=== PATIENT | male | born 1950 | race African-American/Black ===

== ENCOUNTER 2017-01-08 20:05 | Emergency (ER) | payer OTHER, BC ==
[~2017-01-08] VITALS: Ht 185.4 cm; Wt 121.1 kg
--- NOTE | ~2017-01-08 | EKG ---
[place] [address] [facility] [place] [address] ELECTROCARDIOGRAM REPORT Name: MATILDE JEFFREYJENAE Gómez Room #: DEP [facility] [id number] Admission: 01/08/17 Attend Phys: Discharge: 01/08/17 Date of : 52 Report #: [id number] THIS REPORT FOR: //name// [facility] ED Test Date: 2017-01-08 Test Time: 20:18:18 Pat Name: DELORIS JEFFREY Department: Room: Gender: Crop Quantitative Geneticist: [id number] : 1950 Requested By: Johann Cuevas Order Number: [id number] MD: Anshul Peña Measurements Intervals Karnack Rate: 72 P: 48 MT: 203 QRS: -56 QRSD: 151 T: 2 QT: 469 QTc: 514 Interpretive Statements Sinus rhythm Probable left atrial enlargement RBBB and LAFB Compared to ECG 01/09/2016 17:45:24 No significant changes Electronically Signed On 01-09-2017 14:16:54 CDT by Anshul Peña [email or web address] <ELECTRONICALLY SIGNED> By: Anshul Peña MD 01/09/17 1416 17 17 Anshul Peña MD /KEHINDE
[~2017-01-08 20:05] MED LIST: ADULT LOW DOSE81 MG PO; AMARYL4 MG PO; BENAZEPRIL HCL40 MG PO; CARVEDILOL12.5 MG PO; DICLOFENAC SODI75 M1 PO; FELODIPINE ER10 MG PO; GLUCOPHAGE500 MG PO; HYDROCHLOROTHIA25 M1 PO; HYDROCODONE-AP1 EAC6 PO; LYRICA 75 MG CA75 MG PO; MOBIC15 MG PO; OMEPRAZOLE20 M1 PO; PERCOCET 10-321 EACH PO; PERCOCET 5-3251 EACH PO; ROLAIDS CHEWAB1 EACH PO; TRAMADOL 50 MG50 MG PO; TUMS CHEWA500 MG/11 PO; VOLTAREN PO; WELCHOL 625 MG625 MG PO; ZOFRAN4 MG PO
== END 2017-01-08 20:37 | disposition left against medical advice (07) ==
LOC: ER 20:05
DX: R55 Syncope and collapse (principal); I10 Essential (primary) hypertension; E11.9 Type 2 diabetes mellitus without complications; K21.9 Gastro-esophageal reflux disease without esophagitis; M19.90 Unspecified osteoarthritis, unspecified site; F10.99 Alcohol use, unspecified with unspecified alcohol-induced disorder; Z96.652 Presence of left artificial knee joint; Z90.49 Acquired absence of other specified parts of digestive tract; Z87.891 Personal history of nicotine dependence; Z88.0 Allergy status to penicillin

== ENCOUNTER 2020-07-08 03:05 | Inpatient (IN) | payer OTHER, BC ==
[~2020-07-08] VITALS: Ht 185.4 cm; Wt 124.6 kg
[2020-07-08] VITALS (86 sets, daily range): BP systolic 96–150; BP diastolic 45–107
[~2020-07-08 03:05] MED LIST changes: +NORVASC5 MG PO
[2020-07-08 03:38] LABS: ABSOLUTE NEUTROPHILS 6.5 thou/uL (1.4-8.2); BASOPHILS 0.5 % (0.0-2.0); EOSINOPHILS 1.4 % (0.0-3.0); HEMATOCRIT 39.5 % (42.0-52.0); HEMOGLOBIN 12.9 gm/dL (14.0-18.0); LYMPHOCYTES 16.4 % (24.0-44.0); MCH 27.3 pg (26.0-34.0); MCHC 32.7 g/dL (28.0-37.0); MCV 83.6 fL (80.0-100.0); MONOCYTES 7.6 % (1.0-8.0); PLATELET COUNT 169 thou/uL (150-400); POLYS 74.1 % (36.0-66.0); RBC 4.72 mil/uL (4.50-6.00); RDW 16.5 % (10.5-14.5); WBC 8.8 thou/uL (4.0-11.0)
[2020-07-08 03:40] LABS: CALCIUM 8.8 mg/dL (8.5-10.1); CREATININE 1.3 mg/dL (0.7-1.3); POTASSIUM 3.8 mmol/L (3.5-5.1)
[2020-07-08 03:50] LABS: BE(vivo) -3.9 mmol/L (-2 to +3); HCO3 20.9 mmol/L (22.0-26.0); PCO2 36.9 mmHg (35.0-45.0); PO2 82.4 mmHg (80.0-100.0); sO2 95.9 % (92.0-98.0)
[2020-07-08 03:50] LABS: ALBUMIN 3.3 g/dL (3.4-5.0); TOTAL BILIRUBIN 0.8 mg/dL (0.2-1.0); TROPONIN-I 0.08 ng/mL (<0.06)
[2020-07-08 05:24] LABS: CHOLESTEROL 225 mg/dL (<200); HDL CHOLESTEROL 88 mg/dL (>40); LDL CHOLESTEROL 123 mg/dL (<100); TC:HDL 2.6 Ratio (Not establshd); TRIGLYCERIDE 74 mg/dL (<150); VLDL 15 mg/dL (<40)
[2020-07-08 05:25] LABS: SERUM ASSESSMENT Clear
--- NOTE | 2020-07-08 07:45 | EKG ---
[place] [address] [facility] [place] [address] ELECTROCARDIOGRAM REPORT Name: MATILDE JEFFREYJENAE Gómez Room #: 246-P ADM IN M.R.#: [id number] Admission: 07/08/20 Attend Phys: Larissa Kapoor Discharge: Date of : 52 Report #: [id number] [facility] ED Test Date: 2020-07-08 Test Time: 03:11:16 Pat Name: DELORIS JEFFREY Department: Room: 246 Gender: M Pail Bailer: [id number] : 1950 Requested By: Yung Moy Order Number: [id number] MD: Clay Busch Measurements Intervals Mcgrath Rate: 44 P: 87 AR: 222 QRS: -48 QRSD: 151 T: -31 QT: 569 QTc: 487 Interpretive Statements Sinus bradycardia Borderline prolonged AR interval RBBB and LAFB Baseline wander in lead(s) V2 Compared to ECG 01/08/2017 20:18:18 Sinus rhythm no longer present Electronically Signed On 07-08-2020 7:45:45 MACHINE LEAD [employer]URNER by Clay Busch [email or web address] <ELECTRONICALLY SIGNED> By: Clay Busch MD, [facility] 07/08/20 0745 0 0 Clay Busch MD, [facility] /EPI
--- NOTE | 2020-07-08 08:50 | NUR ---
RECIEVED PT TO ICU 246. PT ALERT, SBP 140'S ON LEVOPHED GTT AT 10MCG/MIN-WILL WEAN TO MAINTAIN MAP 65. MONITOR SHOWS SB 50'S WITH BORDERLINE 1ST AVB. FEBRILE. IN ENHANCED PRECAUTIONS, DESPITE POSITIVE COVID BACK IN APRIL ACCORDING TO PT. MAINT IV INFUSING, GOOD URINARY OUTPUT. CONT TO MONITOR FOR SYMPTOMATIC BRADYCARDIA. CONT PLAN OF CARE
--- NOTE | 2020-07-08 15:41 | 2DMMODE ---
[facility] [place] [address] 2 D/M-MODE ECHOCARDIOGRAM Name: DELORIS JEFFREY Room #: 246-P ADM IN M.R.#: [id number] Admission: 07/08/20 Attend Phys: Larissa Kapoor Discharge: Date of : 52 Report #: [id number] THIS REPORT FOR: cc: Physician not on staff Physician not on staff Clay Busch MD [facility] ~ APPROVED REPORT Study performed: 07/08/2020 14:37:43 EXAM: Comprehensive 2D, Doppler, and color-flow Echocardiogram Patient Location: ICU Room #: 246 Status: routine BSA: 2.65 HR: 62 bpm BP: 132/68 mmHg Rhythm: NSR Other Information Study Quality: Adequate Indications Syncope, hypotension, bradycardia, elevated troponin. Hx: HTN, HLP, DM, COVID-19. 2D Dimensions RVDd: 36.74 mm IVSd: 15.27 (7-11mm) LVOT Diam: 24.47 (18-24mm) LVDd: 43.62 mm PWd: 12.19 (7-11mm) Ascending Ao: 36.45 (22-36mm) LVDs: 25.36 (25-40mm) Aortic Root: 36.29 mm Volumes Left Atrial Volume (Systole) Single Plane 4CH: 59.94 mL Single Plane 2CH: 103.38 mL LA ESV Index: 32.00 mL/m2 Aortic Valve AoV Peak Nasir.: 1.58 m/s AO Peak Gr.: 9.95 mmHg LVOT Max P.01 mmHg LVOT Max V: 1.23 m/s ALAYNA Vmax: 3.65 cm2 [facility] [address] [place] [address] 2 D/M-MODE ECHOCARDIOGRAM Name: DELORSI JEFFREY Room #: 246-P [facility] IN ..#: [id number] Admission: 07/08/20 Attend Phys: Larissa Collins Discharge: Date of : 52 Report #: [id number] Mitral Valve E/A Ratio: 90.0 MV Decel. Time: 264.70 ms MV E Max Nasir.: 0.90 m/s MV A Nasir.: 0.01 m/s MV PHT: 76.76 ms IVRT: 73.82 ms Pulmonary Valve PV Peak Nasir.: 1.18 m/s PV Peak Gr.: 5.57 mmHg Pulmonary Vein P Vein S: 0.68 m/s P Vein A: 0.38 m/s P Vein D: 0.55 m/s P Vein A Dur.: 147.6 msec P Vein S/D Ratio: 1.24 Tricuspid Valve TR Peak Nasir.: 2.64 m/s RAP Estimate: 10.00 mmHg TR Peak Gr.: 28.00 mmHg PA Pressure: 38.00 mmHg Left Ventricle The left ventricle is normal size. There is normal LV segmental wall motion. Mild to moderate concentric left ventricular hypertrophy. Left ventricular systolic function is normal. LVEF is 60-65%. Mild diastolic dysfunction is present (impaired relaxation pattern). Right Ventricle The right ventricle is normal size. The right ventricular systolic function is normal. Atria The left atrium size is normal. The right atrium size is normal. Aortic Valve The aortic valve is normal in structure; minimally calcified. No aortic regurgitation is present. There is no aortic valvular stenosis. Mitral Valve The mitral valve is normal in structure. Mild mitral annular calcification. Trace mitral regurgitation. No evidence of mitral valve stenosis. [facility] [address] [place] [address] 2 D/M-MODE ECHOCARDIOGRAM Name: DELORIS JEFFREY Room #: 246-P ADM IN M.R.#: [id number] Admission: 07/08/20 Attend Phys: Larissa Collins Discharge: Date of : 52 Report #: [id number] Tricuspid Valve The tricuspid valve is normal in structure. Mild tricuspid regurgitation. Estiamted PAP is 35-40mmHg. Pulmonic Valve The pulmonary valve is normal in structure. Trace pulmonic regurgitation. Great Vessels Borderline aortic root enlargement The ascending aorta is mildly dilated. IVC is dilated and collapses >50% with inspiration. Pericardium There is no pericardial effusion. <Conclusion> Normal left ventricular size Mild to moderate concentric hypertrophy Ejection fraction 60% Abnormal right ventricle size/function Normal atrial size Color-flow Doppler study was performed of the aortic/mitral/tricuspid/pulmonary valve Mild aortic valve calcification without stenosis Mild mitral annular calcification Mild tricuspid valve insufficiency Pulmonary systolic pressure estimated 35 mmHg Borderline aortic root enlargement No pericardial effusion <ELECTRONICALLY SIGNED> By: Clay Busch MD, FACC 07/08/20 154 [id number] 40 Clay Busch MD, FACC /INF
--- NOTE | 2020-07-08 16:23 | NUR ---
Patient remains in ICU care with Levophed gtt in enhanced precautions but noted 07-08-20 now NEGTIVE PCR COVID test. Spoke with Any at [phone] and introduced role of CM. states patient has never used Home Health, Skilled services or DME in the past. Explained that CM will follow for discharge needs based on medical directives and therapy evaluations and will continue to follow patient for such needs. voiced an understanding.
--- NOTE | 2020-07-08 19:24 | NUR ---
assumed care of pt 0700. hr drop to mid 40's in am. cardiology paiged. notified regarding troponin and orders recieved to start dopamine. pt unable to move upper extremities. 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 able to move slightly by end of shift however. ct of c-spine today. reamins on dopamine. afebrile throughout schift. covd pcr negative. progressing in plan of care
[2020-07-09] VITALS (31 sets, daily range): BP systolic 80–144; BP diastolic 49–78
[2020-07-09 00:06] LABS: GLYCOHEMOGLOBIN (HGB A1C) 5.8 % (4.8-5.6)
--- NOTE | 2020-07-09 05:05 | NUR ---
ASSUMED CARE OF PATIENT AT 1900. REMAINS ON DOPAMINE GTT. O2 OFF UNTIL SLEEP, DESATS INTO THE 80'S. STATES HE HAS NOT BEEN DIAGNOSED WITH SLEEP APNEA BUT HE KNOWS HE SNORES. ABLE TO MOVE EXTREMETIES MORE. PROGRESSING TOWARDS POC GOALS.
[2020-07-09 05:49] LABS: HEMATOCRIT 35.7 % (42.0-52.0); HEMOGLOBIN 11.7 gm/dL (14.0-18.0); MCH 27.4 pg (26.0-34.0); MCHC 32.7 g/dL (28.0-37.0); MCV 83.8 fL (80.0-100.0); RBC 4.26 mil/uL (4.50-6.00); RDW 16.3 % (10.5-14.5); WBC 9.3 thou/uL (4.0-11.0)
[2020-07-09 06:09] LABS: ALBUMIN 2.6 g/dL (3.4-5.0); ANION GAP 7 mmol/L (7-16); BUN 11 mg/dL (7-18); CHLORIDE 109 mmol/L (98-107); CO2 29 mmol/L (21-32); CREATININE 0.9 mg/dL (0.7-1.3); GLUCOSE 108 mg/dL (74-106); POTASSIUM 3.7 mmol/L (3.5-5.1); SGOT 30 U/L (15-37); SGPT 31 U/L (30-65); SODIUM 145 mmol/L (136-145); TOTAL BILIRUBIN 0.7 mg/dL (0.2-1.0); TOTAL PROTEIN 6.1 g/dL (6.4-8.2); TROPONIN-I <0.06 ng/mL (<0.06)
--- NOTE | 2020-07-09 09:51 | NUR ---
ASSUMED CARE AT 0700, ASSESSMENT AND VITAL SIGNS COMPLETED PER ICU PROTOCOL. RN WILL CONTINUE TO MONITOR.
--- NOTE | 2020-07-09 10:34 | NUR ---
chart review. pt cont on o2 per nc rt desat, cont to requirer dopamine drip. MRI for today. report given by bedside nurse via phone call . noted he was independent prior to hospital, no past hh or rehab needs. lives with his spouse. will cont following as needed for dc needs
--- NOTE | 2020-07-09 17:59 | NUR ---
PT ARRIVED TO UNIT APPROX 1750 ACCOMPANIED BY SPOUSE. PT ALERT, ORIENTED.VSS. O2 SAT WNL RA. DENIES PAIN. CONTINUING POC. WILL PASS ON REPORT TO EVY AYALA.
[2020-07-10] VITALS: BP 113/70
[2020-07-10 05:20] VITALS: BP 159/88
--- NOTE | 2020-07-10 07:21 | NUR ---
ASSUME CARE 1900. PT/VITALS STABLE. INTERMITTENT PAIN IN BLE/BUE. TYLENOL FOR RELIEF. MODERATE TOLERANCE TO ACTIVITY. COULD BENEFIT FROM PT/OT. SB ON MONITOR. ASSESSMENT CHARTE. PROGRESSING WELL WITH POC. MODERATE REST NOTED. PLAN IS FOR NEUROLOGY/NEUROSURGEY ASSESSMENT FOR FURTHER POC. WILL CONTINUE TO MONITOR AND FOLLOW WITH POC
[2020-07-10 08:18] VITALS: BP 137/88
[2020-07-10 11:10] VITALS: BP 143/89
[2020-07-10 13:10] LABS: MAGNESIUM 2.1 mg/dL (1.8-2.4)
[2020-07-10 13:12] LABS: % SATURATION 15 % (20-39); IRON 23 ug/dL (65-175); TIBC 158 ug/dL (250-450)
[2020-07-10 13:39] LABS: FOLIC ACID 16.4 ng/mL (8.6-58.9)
[2020-07-10 15:02] VITALS: BP 158/93
--- NOTE | 2020-07-10 15:20 | NUR ---
PT ALERT AND ORIENTED. ON STRICT BED REST. VSS. PRN PAIN MED GIVEN FOR BACK PAIN. NEW ORDERS NOTED. SR ON TELE. NO CONCERNS AT THIS TIME.
--- NOTE | 2020-07-10 16:59 | NUR ---
Met with patient who reports he lives at home with . Reports lives in multi-level home. He believes they have sold their home and need to leave by the of this month. He has contacted relator and have not had return call. Patient has a cane if needed. He anticipates no dc needs. Dr Peña his shoe lay out planner. He has granddtr in area who is supportive. he is awaiting neeurosx eval. Therapy evals in process.
[2020-07-10 20:45] VITALS: BP 141/86
[2020-07-11 00:37] VITALS: BP 146/88
[2020-07-11 04:45] VITALS: BP 157/93
--- NOTE | 2020-07-11 07:41 | NUR ---
REMAINS ON BED REST THRU THE NOC, NPO AFTER MNOC FOR POSSIBLE SURG. VSS, C/O LEFT SIDED RANDALL THIS AM PRN PAIN MED GIVEN, CON'T TO MONITOR PER PPOC.
[2020-07-11 07:50] VITALS: BP 177/97
[2020-07-11 11:17] VITALS: BP 134/80
[2020-07-11 15:13] VITALS: BP 148/65
--- NOTE | 2020-07-11 16:39 | NUR ---
Case discussed with the care team. Pt seen by neurosx and surgery being scheduled. Pt may benefit from a acute rehab eval postop. 5N liason aware.
--- NOTE | 2020-07-11 19:06 | NUR ---
PATIENT PLACED IN C-COLLAR PER NEUROSURG. AMBULATED HALLWAY WITH PT. UP TO CHAIR FOR MAJORITY OF DAY. EDUCATED ON BRADYCARDIA AND HYPOTENSION WHILE AMBULATING. AT BEDSIDE AND UPDATED. PATIENT PROGRESSING.
[2020-07-11 19:35] VITALS: BP 123/67
[2020-07-12 05:05] VITALS: BP 135/83
[2020-07-12 07:43] VITALS: BP 131/76
--- NOTE | 2020-07-12 07:52 | NUR ---
ASSESSMENTS CHARTED, MEDS CHARTED GIVEN. PATIENT WAS SITTING IN RECLINER WITH CERVICAL COLLAR IN PLACE AT START OF SHIFT. CERVICAL COLLAR REMOVED WHEN HE WENT TO BED. SINUS RHYTHM, SINUS PELON ON TELEMETRY WITH FIRST DEGREE AND BBB. ON ROOM AIR. PATIENT UP WITH STANDBY ASSIST. PATIENT REQUESTING A SHOWER TODAY. FALL PRECAUTIONS IN PLACE DURING SHIFT.
[2020-07-12 11:47] VITALS: BP 93/59
--- NOTE | 2020-07-12 12:11 | NUR ---
PT ALERT AND ORIENTED TIMES FOUR. VSS. SR ON TELE. PT C/O PAIN PRN PAIN MEDICATIONS GIVEN WITH GOOD RELEIF. PT TOLERATES MEDS AND MEALS. PT UP SITTING IN THE CHAIR FOR MOST OF THE SHIFT. WILL CONTINUE TO MONITOR.
[2020-07-12 16:23] VITALS: BP 120/88
[2020-07-12 19:30] VITALS: BP 118/76
[2020-07-13] VITALS (8 sets, daily range): BP systolic 112–143; BP diastolic 60–84
--- NOTE | 2020-07-13 04:30 | NUR ---
ASSUMED PATIENT CARE AT 1845. VITAL SIGNS MOSTLY STABLE WITH PATIENT EXHIBITING ASSYMPTOMATIC BRADYCARDIA. PATIENT DID HAVE COMPLAINTS OF PAIN TO NECK, SIDE OF HEAD, AND HANDS WHICH WAS TREATED APPROPRIATELY THROUGH MEDICATIONS. FULLY ALERT AND ORIENTED THROUGHOUT SHIFT, PATIENT IS ABLE TO CALL APPROPRIATELY FOR NEEDS. BREATHING STABLE ON ROOM AIR EVIDENCED BY ASSESSMENTS AND SPOT OXYGENATION CHECKS. CONTINUE PLAN OF CARE.
--- NOTE | 2020-07-13 18:50 | NUR ---
PT CARE ASSUMED AT 0700. ASSESSMENTS CHARTED. MEDICATIONS CHARTED. RSC 3L PICC. URINAL/BSC. MUST WEAR C-COLLAR WHEN OUT OF BED. HYDROCODONE Q6PRN. SURGERY FOR SPINAL CORD STENOSIS ON WEDNESDAY.
[2020-07-14] VITALS (8 sets, daily range): BP systolic 112–155; BP diastolic 67–88
--- NOTE | 2020-07-14 07:57 | NUR ---
ASSESSMENTS CHARTED, MEDS CHARTED GIVEN. PATIENT RESTING IN BED OR SITTING IN RECLINER DURING SHIFT. IF OUT OF BED, HE IS WEARING THE CERVICAL COLLAR. PATIENT IS SCHEDULED FOR SURGERY ON WEDNESDAY AT THIS POINT. C/O PAIN ONCE DURING SHIFT. FALL PRECAUTIONS IN PLACE DURING SHIFT.
--- NOTE | 2020-07-14 19:51 | NUR ---
PT CARE ASSUMED AT 0700. ASSESSMENTS CHARTED. MEDICATIONS CHARTED. RSC 3L PICC. SB 1ST BBB. EF 60% URINAL/TOILET. SURGERY ON WEDNESDAY. C-COLLAR NECESSARY IF PT GETS OUT OF BED.
[2020-07-15] VITALS (7 sets, daily range): BP systolic 117–151; BP diastolic 67–84
[2020-07-15 05:36] LABS: HEMATOCRIT 36.9 % (42.0-52.0); HEMOGLOBIN 12.1 gm/dL (14.0-18.0); MCH 27.6 pg (26.0-34.0); MCHC 32.6 g/dL (28.0-37.0); MCV 84.5 fL (80.0-100.0); RBC 4.37 mil/uL (4.50-6.00); RDW 16.8 % (10.5-14.5); WBC 5.3 thou/uL (4.0-11.0)
[2020-07-15 05:42] LABS: CALCIUM 8.4 mg/dL (8.5-10.1); CREATININE 0.9 mg/dL (0.7-1.3); POTASSIUM 3.7 mmol/L (3.5-5.1)
--- NOTE | 2020-07-15 08:10 | NUR ---
ASSUME CARE 1900. PT/VITALS STABLE. INTEERMITTENT NECK PAIN. GOOD TOLERANE TO ACTIVITY. ASSESSMENT CHARTED. PROGRESSING WELL WITH POC. SR ON MONITOR. ADEQUATE REST/NO DISTRESS NOTED. PLAN IS POSSIBLE LAMINECTOMY TODAY. PT NPO SINCE MN. LOVENOX GIVEN NIGHT PRIOR. PASSED ON TO DAY NURSE TO LET SURGERY STAFF KNOW THAT LOVENOX WAS GIVEN THE NIGHT BEFORE. DAY NURSE VERBALIZES UNDERSTANDING. PROGRESSING WELL WITH POC. WILL CONTINUE TO MONITOR AND FOLLOW WITH POC
--- NOTE | 2020-07-15 10:54 | NUR ---
Process intervention done
--- NOTE | 2020-07-15 18:16 | NUR ---
PT CARE ASSUMED AT 0700. ASSESSMENTS CHARTED. MEDICATIONS CHARTED. RSC 3L PICC. URINAL/BEDPAN. SB 1ST BBB. EF 60% CERVICAL LAMINECTOMY PERFORMED; PT IN SURGERY FROM 0830 TO 1600. HOB TO REMAIN FLAT, 10-15 DEGREES TO EAT, MAY LOG ROLL. NO STRAINING.
[2020-07-16] VITALS (8 sets, daily range): BP systolic 114–136; BP diastolic 55–84
--- NOTE | 2020-07-16 03:37 | NUR ---
ASSUME CARE 1900. PT/VITALS STABLE. INTERMITTENT INCISIONAL PAIN NOTED. SURGICAL DRESSING CDI WITH VERY SCANT DRAIANAGE NOTED ON DRESSING. PT TOLERATING WELL. COULD BENEFIT FROM PT/OT TO IMPROVE ACTIVITY LEVEL. COMPLAINS OF MILD NUMBNESS IN BOTH HANDS AND FEET BUT DENIES [place] WORSENING SYMPTOMS. ASSESMENT CHARTED. PROGRESSING WELL WITH POC. PLAN IS TO MONITOR FOR BLEEDING/INFECTION/IMPROVED FUNCTION OF LIMBS. WILL CONTINUE TO MONITOR AND FOLLOW WITH POC
--- NOTE | 2020-07-16 14:21 | NUR ---
Nutrition: pt admitted with hypotension, bradycardia, S/P fall. Seen for LOS. POD 1 laminectomy for C4-C7 decompression and durotomy repair. Currently pt requires lying flat and unable to eat but should be able to eat later today. Intake prior to surgery 50-100% of meals. PMH: DM2, gastric sleeve 2013, CKD, CAD. BG controlled. Pt reports a weight loss of 125# since his gastric sleeve. Current diet appropriate, encourage smaller more frequent intake when able to sit up. Low nutrition risk.
--- NOTE | 2020-07-16 19:29 | NUR ---
ASSUMED CARE SHIFT CHANGE. ASSESSMENTS CHARTED.MEDS GIVEN. VSS. C/O PAIN MANAGED WITH PAIN MEDS. O2 SATS WNL ON RA AND 2L O2. PT REMAINS BEDREST. PER NEUROSURGERY NOTE PT CAN GRADUALLY ELEVATE BED TOLERATED. DRESSING REMAINS INTACT, MINIMAL DRAINAGE. CONTINUING POC. REPORT PASSED ONTO NOC RN.
[2020-07-17] VITALS (7 sets, daily range): BP systolic 105–138; BP diastolic 50–71
--- NOTE | 2020-07-17 09:11 | NUR ---
ASSUMED CARE OF PATIENT AT 1900; AOX4, ANXIOUS/DEPRESSED AT TIMES D/T POSTOP BEDREST ORDERED P/T PASSING POSTOP HOB ELEVATION INSTRUCTIONS; SX DRESSING TO BACK OF NECK NOT VISIBLE BUT NO DRAINAGE NOTED; SR/BBB/1D NOTED ON THE MONITOR; C/O PAIN MANAGED WITH PRN MEDICATIONS; C/O HEADACHE MANAGED WITH MEDS AND A DECREASED IN HOB ELEVATION; PLAN IS FOR PATIENT TO D/C TO REHAB ONCE POSTOP BEDREST/HOB ELEVATION POSTOP CHALLENGE COMPLETED; WILL CONTINUE TO MONITOR AND FOLLOW POC.
--- NOTE | 2020-07-17 13:43 | NUR ---
ASSESSMENT CHARTED. PT ALERT AND ORIENTED. VSS. SR/SB ON TELE. UP IN THE CHAIR TODAY. PRN PAIN MED GIVEN WITH PARTIAL RELIEF. PLAN TO BE DISCHARGE TO [address] [place] [address] REHAB IN AM. NO CONCERNS AT THIS TIME.
--- NOTE | 2020-07-17 13:51 | NUR ---
Patient accepted to 5N acute rehab plan dc in am. Patient in agreement with plan. Updated phys. requested COVID test from RN.
[2020-07-18 05:00] VITALS: BP 123/79
--- NOTE | 2020-07-18 06:16 | NUR ---
ASSESSMENTS CHARTED, MEDS CHARTED GIVEN. PATIENT SITTING IN RECLINER AT START OF SHIFT. MOVED TO BED FOR REMAINDER OF SHIFT. SR/SB ON TELEMETRY. LUNGS CLEAR. PATIENT HAD SMALL BOWEL MOVEMENT DURING SHIFT. UP WITH ASSIST AND WALKER TO BATHROOM AND BED. SURGICAL SITE DRESSING DRY AND INTACT. PATIENT REQUESTED OXYCODONE FOR HIGH PAIN LEVEL. PATIENT GHOSH VIRUS TEST WAS NEGATIVE. PLAN IS TO TRANSFER TO 5N TODAY. FALL PRECAUTIONS IN PLACE DURING SHIFT.
[2020-07-18 07:41] VITALS: BP 107/65
[2020-07-18] MEDS ORDERED: ADULT LOW DOSE81 MG PO (08:37)
[2020-07-18] MEDS ORDERED: LISINOPRIL20 MG PO (08:37)
[2020-07-18] MEDS ORDERED: LIPITOR40 MG PO (08:37)
[2020-07-18] MEDS ORDERED: ACETAMINOPHEN325 M1 PO (08:38)
[2020-07-18] MEDS ORDERED: PERCOCET PO (08:38)
[2020-07-18 11:03] VITALS: BP 101/59
--- NOTE | 2020-07-18 11:56 | NUR ---
Pt dcing to 5N acute rehab today. Pt and spouse agreeable. Covid test negative. 5N cm to follow for HH/DME needs at dc.
--- NOTE | 2020-07-18 13:12 | NUR ---
VASCULAR ACCESS NURSE ROUNDING. REHAB CONSULT TODAY SO DISCUSSED WITH PATIENT ABOUT THE NEED TO REMOVE CENTRAL ACCESS PRIOR TO TRANSFER TO DECREASE RISK OF A BLOOD STREAM INFECTION
--- NOTE | 2020-07-18 14:40 | NUR ---
ASSUMED CARE SHIFT CHANGE. ASSESSMENTS CHARTED.MEDS GIVEN. VSS. PT UP X1 W/ WALKER TOLERATING WELL. O2 SATS WNL RA. DRESSING CHANGED THIS SHIFT WITH EL ALBERTO FROM NEUROSURGERY. DC ORDERS ACK AND IMPLEMENTED FOR 5N REHAB. REPORT GIVEN. SPOUSE NOTIFIED. PT LEFT UNIT WITH ALL BELONGINGS. TELE DC'D.
== END 2020-07-18 14:40 | DRG 518 ==
LOC: ER 03:05 → EROBS 04:27 → ICU 04:27 → 2N 07-09 17:39
PROVIDERS: Emergency Medicine; Hospitalist; Nurse Practitioner Family; ADMIT Hospitalist; ATTEND Hospitalist
DX: M48.02 Spinal stenosis, cervical region (principal); S14.122A Central cord syndrome at C2 level of cervical spinal cord, initial encounter; E43 Unspecified severe protein-calorie malnutrition; G95.20 Unspecified cord compression; M54.12 Radiculopathy, cervical region; R55 Syncope and collapse; R00.1 Bradycardia, unspecified; I95.89 Other hypotension; R77.8 Other specified abnormalities of plasma proteins; Z96.652 Presence of left artificial knee joint; K21.9 Gastro-esophageal reflux disease without esophagitis; M19.90 Unspecified osteoarthritis, unspecified site; F12.90 Cannabis use, unspecified, uncomplicated; I25.10 Atherosclerotic heart disease of native coronary artery without angina pectoris; G47.33 Obstructive sleep apnea (adult) (pediatric); N18.9 Chronic kidney disease, unspecified; E11.22 Type 2 diabetes mellitus with diabetic chronic kidney disease; I12.9 Hypertensive chronic kidney disease with stage 1 through stage 4 chronic kidney disease, or unspecified chronic kidney disease; I48.91 Unspecified atrial fibrillation; E66.01 Morbid (severe) obesity due to excess calories; Z20.822 Contact with and (suspected) exposure to COVID-19; Z68.36 Body mass index [BMI] 36.0-36.9, adult; Z90.49 Acquired absence of other specified parts of digestive tract; Z88.0 Allergy status to penicillin; Z87.891 Personal history of nicotine dependence; Z86.16 Personal history of COVID-19; Z79.82 Long term (current) use of aspirin; Z79.899 Other long term (current) drug therapy; W18.39XA Other fall on same level, initial encounter; Y93.89 Activity, other specified; Y92.89 Other specified places as the place of occurrence of the external cause; Y99.8 Other external cause status
CPT/HCPCS: 10078; 10081; 50010; 50101; 50402; 50838; 51436; 51751; 56527; 56528; 56532; 57103; 62110; 62900; 65131; 70005

== ENCOUNTER 2020-07-17 14:13 | Inpatient (IN) | payer OTHER, BC ==
[~2020-07-17] VITALS: Ht 182.9 cm; Wt 123.4 kg
[2020-07-18] MEDS ORDERED: LISINOPRIL20 MG PO (08:37)
[2020-07-18] MEDS ORDERED: LIPITOR40 MG PO (08:37)
[2020-07-18] MEDS ORDERED: ADULT LOW DOSE81 MG PO (08:37)
[2020-07-18] MEDS ORDERED: PERCOCET PO (08:38)
[2020-07-18] MEDS ORDERED: ACETAMINOPHEN325 M1 PO (08:38)
[2020-07-18 14:20] VITALS: BP 116/57
--- NOTE | 2020-07-18 14:20 | NUR ---
NEW ADMISSION FROM CCU. CAME IN VIA WC WITH HOSP STAFF. ALERT AND ORIENTATED. REPORTED PAIN IN BACK OF NECK. DRESSING INTACT TO INCISION SITE AT THE BACK OF THE NECK WITH MOD DRIED DRAINAGE. VSS. OXYCODONE 10MG GIVEN WITH GOOD RELIEF. PT FEELS THE SC CC LINE IS CAUSING DISCOMFORT AND PAIN IN HIS NECK AND REQUESTED TO BE REMOVED. PT INFORMED THE PROVIDER WILL ADDRESS THE LINE TOMORROW. DIURESING USING THE URINAL. HAD A BM YESTERDAY. ASSESSMENT AND ADMISSION DONE. CALL LIGHT WITHIN REACH. ROOM ORIENTATION GIVEN TO PT. PT/OT TO EVAL AND TREAT TOMORROW.
--- NOTE | 2020-07-18 15:50 | NUR ---
chart review. new to acute rehab today. intro to cm, team meeting and dcp. cm cont to wear face mask and shield during visit. aishaprerna wear his mask as well. " home with , 4 to 10 steps to enter. independent, have cane, drive vehicle. manage own medication. you know we sold our house and have to be out before the . hope i can dc 07/23/20 tue after meeting if i am ready. have allot to move"/yvonne. will cont following as needed for dc needs.
[2020-07-18 19:55] VITALS: BP 127/67
--- NOTE | 2020-07-19 03:25 | NUR ---
PT ASSESSMENT COMPLETED AND VSS. MEDS GIVEN ORDERED AND WELL TOLERATED. FALL PRECAUTIONS IN PLACE. DSG ON BACK OF NECK DRY AND INTACT. SAT WNL ON RA. WHEN SLEEPING PT ON 2L BECAUSE OF SLEEP APNEA HX. PRN PAIN MEDICATION WORKING WELL. DENEIS NEEDS. SLEEPING. WILL CONTINUE TO MONITOR FREQUENTLY.
[2020-07-19 05:15] VITALS: BP 130/73
[2020-07-19 06:08] LABS: MCH 27.3 pg (26.0-34.0); MCHC 32.3 g/dL (28.0-37.0); MCV 84.6 fL (80.0-100.0); RBC 4.02 mil/uL (4.50-6.00); RDW 16.2 % (10.5-14.5); WBC 7.4 thou/uL (4.0-11.0)
[2020-07-19 06:14] LABS: CALCIUM 8.3 mg/dL (8.5-10.1); CREATININE 1.2 mg/dL (0.7-1.3); POTASSIUM 3.9 mmol/L (3.5-5.1)
--- NOTE | 2020-07-19 11:18 | NUR ---
Nutrition Note: RD received consult for poor intake. Pt visited this afternoon. Noted good appetite but likes to order own food. 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 Currently at 272# standing which is loss of 4% x 2 weeks, however previous wts taken on bedscale. Pt with no c/o GI distress. No pressure injuries noted. Pt remains low nutritional risk at this time.
--- NOTE | 2020-07-19 15:31 | NUR ---
PATIENT VERBALIZING CONSTANT PAIN TO RIGHT SHOULDER/NECK AREA. HE IS ATTRIBUTING IT TO HIS CENTRAL LINE. ORDER TO DISCONTINUE. SPOKE WITH IV NURSE, NON-TUNNLED AND OKAY TO D/C AT BEDSIDE. PRESSURE HELD FOR 5 MIN WITH HEMOSTASIS. PATIENT VOICES SOME RELIEF WITH DISCONTINUATION. PRN MEDICATION GIVEN - SEE EMAR.
[2020-07-19 20:00] VITALS: BP 125/69
--- NOTE | 2020-07-20 03:14 | NUR ---
assumed care approx 0 evening 07/19. pt lying in bed with head of bed elevated resting and watching tv. pt alert and oriented x4, pleasant and cooperative. pt with fluctuating temp from ranging from 98.9 to 101.2. BELT AND LINK ASSEMBLY SUPERVISOR called Roselia Crump and no new orders given. Gave pt Tylenol as ordered and encouraged to use IS at bedside. pt with 02 at 2L per n/c. pt voiding per urinal. pt appears to be sleeping soundly. bed alarm on and call light in reach. will continue to monitor.
[2020-07-20 07:35] VITALS: BP 124/68
--- NOTE | 2020-07-20 11:00 | NUR ---
ASSUMED CARE AT 0700. SLEPT FAIRLY WELL LAST NIGHT. ALERT AND ORIENTATED. DENIES ANY PAIN FOR NOW. TEMPERATURE VARIES FROM 99.8 TO 101.2. PT DENIES ANY CHILLS OR FEVER. DRESSING CHANGE TO BACK OF NECK WITH NO SIGN OF DRAINAGE OR INFLAMMATION. LUNG CLEAR AND SLIGHTLY DIM AT THE BASES. PT ENCOURAGED TO WORK ON IS. DR FITCH NOTIFIED, WILL HAVE LABS DRAWN TOMORROW. PT REPORTED WEAKNESS IN R ARM AND PAIN WITH USING THE WALKER. HAS OXYCODONE 10MG Q4HPRN WITH MUSCLE SPASM MORIAH. REFUSED HIS MIRALAX, TOOK HIS COLACE AND HAD A LARGE BM. PARTICIPATING WITH THERAPY AND PROGRESSING SLOWLY TOWARDS GOAL.
[2020-07-20 20:00] VITALS: BP 131/63
--- NOTE | 2020-07-21 00:55 | NUR ---
PT ASSESSMENT COMPLETED AND VSS. MEDS GIVEN ORDERED AND WELL TOLERATED. FALL PRECAUTIONS IN PLACE. PT UP IN THE CHAIR EARLY DURING SHIFT. PT T EARLY DURING THE SHIFT 101.8. PT HAD CONTINUED PAIN AND A MILD RANDALL. HE SAID THE PAIN WAS NOT NEW. IT WAS IN HIS NECK AND UNDER HIS RIGHT ARM. ENC PT TO USE HIS IS AND DEEP BREATH. RECHECKED TEMP 15 MINUTES LATER AND IT WAS DOWN TO 100.7. PT STATES THAT HE HAD NOT BEEN DOING A GOOD JOB WITH HIS IS. ENC PT TO WORK ON IT FREQUETNLY. CONTACTED PACKAGE CHECKER WITH DR AHUMADA. PER ORDERS WILL CONTACT PACKAGE CHECKER WITH THE HOSPITALIST IF FEVER CONTINUES TO GO UP. BUT IF PT TEMP STAYS AT 101.2 OR HIGHER TO CONTACT HER. ALSO TO CONTACT HER IF HE HAS A SEVERE RANDALL/N/V/OR VISION CHANGES. HE DENIES ANY OF THE ABOVE AT THIS TIME. WILL CONTINUE TO MONITOR PT. RECHECKED PT TEMP AT MIDNIGHT - 99.7. SLEEPING WELL AT HS.
[2020-07-21 06:24] LABS: HEMOGLOBIN 10.9 gm/dL (14.0-18.0); MCH 27.1 pg (26.0-34.0); MCHC 31.9 g/dL (28.0-37.0); MCV 84.7 fL (80.0-100.0); RBC 4.02 mil/uL (4.50-6.00); RDW 15.8 % (10.5-14.5); WBC 6.9 thou/uL (4.0-11.0)
[2020-07-21 06:40] LABS: CALCIUM 8.6 mg/dL (8.5-10.1); CREATININE 0.9 mg/dL (0.7-1.3); POTASSIUM 3.9 mmol/L (3.5-5.1)
[2020-07-21 07:15] VITALS: BP 125/61
--- NOTE | 2020-07-21 07:45 | NUR ---
PT TEMP AT 0500 WAS 99.7. PT ALERT AND TALKING. NO NEW SYMPTOMS. INFORMED DAY RN.
--- NOTE | 2020-07-21 14:03 | NUR ---
ASSUMED CARE AT 0700. ALERT AND ORIENTATED. PT GIVEN METHACARBAMOL AND TRAMADOL THIS AFTERNOON FOR NECK AND R ARM PAIN. APPETITE FAIR, USUALLY EATS 25% OF MEALS DUE TO GASTRIC BYPASS. ORAL TEMP RUNS AROUND 99.0-99.6 THIS SHIFT. EDUCATION GIVEN TO USE THE INCENTIVE SPIROMETRY AND TO DO 10X Q3-4 HRS. PT ABLE TO GET UP TO 500-1000ML. DENIES ANY CHILLS, FEVER. DRESSING TO NECK DONE WITH NO DRAINAGE OR INFLAMMATION NOTED. DR FITCH NOTED AND TO NOTIFY HIM IF PT HAS INCREASE DRAINAGE OR TEMP REMAINS HIGH FOR CONCERNS FOR INFECTION. PT DENIES ANY NV/RANDALL/LOSS OF VISION. WALKED WITH PHY THERAPY TODAY.
[2020-07-21 20:05] VITALS: BP 129/75
--- NOTE | 2020-07-22 02:22 | NUR ---
pt lying in bed at change of shift. pt appropriate and cooperative. pt c/o pain to neck and back and given hs meds and pain meds. pt voiding per urinal spilled urine in bed requiring bed change. pt up to bathroom with walker twice so far tonight. no bm. 02 at 2l per n/c. bed alarm on and call light in reach. will continue to monitor.
[2020-07-22 07:15] VITALS: BP 118/66
--- NOTE | 2020-07-22 14:04 | NUR ---
PT A&OX4, VSS, PAIN IN NECK. PAIN MEDICATION GIVEN THIS AM. DOCTOR IN TO VIEW SURGICAL SITE. TONG ON NECK NO DEHISCENCE OR DRAINAGE. PATIENT HAS LOW GRADE FEVER WITH CHILLS. NURSE PRACTITIONER IN AND AWARE. PATIENT PARTICIPATED IN THERAPY AND IS TOLERATING DIET. NO SIGNS OF DISTRESS. WILL CONTINUE TO MONITOR.
[2020-07-22 19:35] VITALS: BP 129/78
[2020-07-22 20:13] LABS: URINE BILIRUBIN NEGATIVE (Negative); URINE BLOOD NEGATIVE (Negative); URINE CLARITY CLEAR; URINE COLOR YELLOW; URINE GLUCOSE-RANDOM* NEGATIVE (Negative); URINE KETONES NEGATIVE (Negative); URINE LEUKOCYTES-REFLEX NEGATIVE (Negative); URINE NITRITE-REFLEX NEGATIVE (Negative); URINE PROTEIN (DIPSTICK) NEGATIVE (Negative); URINE SPECIFIC GRAVITY 1.015 (1.005-1.035); URINE UROBILINOGEN >= 8.0 E.U./dl (0.2-1.0)
--- NOTE | 2020-07-23 01:38 | NUR ---
PT HAD A HIGH FEVER THIS EVENING 102.8. PT HAS A CONTINUED MILD RANDALL AND NECK PAIN. DSG ON NECK DRY AND INTACT. ENC PT TO USE HIS IS. CONTACTED FELLER SEAM OPERATOR WITH SURGERY AND READ HER PT SCAN RESULTS. NO NEW ORDERS. URINE SENT TO LAB. BLOOD CULTURES X 2 COMPLETED AND PENDING. CONTACTED MARIZA LAWSON AND SHE SAID TO GIVE THE PT TYLENOL AND CALL HER IF THE PT TEMP DID NOT GO DOWN. RECHECKED PT TEMP AND IT WENT DOWN TO 100.9. THEN RECHECKED PT TEMP AT 0030 AND NOW DOWN TO 99.4. PT SLEEPING WELL. VOIDING MODERATE AMOUNT OF YELLOW URINE PER URINAL. ASST WITH REPOSITION FOR COMFORT. PT DENIES NEEDS. WILL CONTINUE TO MONITOR FREQUENTLY.
[2020-07-23 08:00] VITALS: BP 121/66
[2020-07-23 12:34] LABS: ABSOLUTE NEUTROPHILS 6.4 thou/uL (1.4-8.2); BASOPHILS 0.6 % (0.0-2.0); EOSINOPHILS 1.6 % (0.0-3.0); HEMATOCRIT 34.8 % (42.0-52.0); HEMOGLOBIN 11.1 gm/dL (14.0-18.0); LYMPHOCYTES 14.9 % (24.0-44.0); MCH 26.7 pg (26.0-34.0); MCHC 31.9 g/dL (28.0-37.0); MCV 83.8 fL (80.0-100.0); MONOCYTES 7.5 % (1.0-8.0); POLYS 75.4 % (36.0-66.0); RBC 4.15 mil/uL (4.50-6.00); RDW 15.9 % (10.5-14.5); WBC 8.4 thou/uL (4.0-11.0)
[2020-07-23 12:36] LABS: PLATELET COUNT 293 thou/uL (150-400)
[2020-07-23 12:59] LABS: MAGNESIUM 2.3 mg/dL (1.8-2.4); POTASSIUM 4.1 mmol/L (3.5-5.1)
[2020-07-23 13:03] LABS: ALBUMIN 2.8 g/dL (3.4-5.0); DIRECT BILIRUBIN 0.3 mg/dL (<0.1-0.2); TOTAL BILIRUBIN 0.8 mg/dL (0.2-1.0); TOTAL PROTEIN 7.3 g/dL (6.4-8.2)
--- NOTE | 2020-07-23 13:49 | NUR ---
team meeting, id consulted rt fever 102. c/o of pain with movement. ( no fever, emesis, neause or headaches). alot of pain with movement c/co. speech consulted for cog, pt going to stay with granddaughter at dc. will be home with him. [facility]nd h[facility] (pt, ot, st and nursing).
--- NOTE | 2020-07-23 16:03 | NUR ---
PT ALERT AND ORIENTED TIMES FOUR. VSS. PT TOLERATES MEDS AND MEALS. PT WORKED WELL WITH PT/OT. PT UP SITTING IN THE CHAIR FOR SOME PART OF THE DAY. PT PROGRESSING TOWARDS POC GOALS.
[2020-07-23 19:35] VITALS: BP 128/72
--- NOTE | 2020-07-23 23:39 | NUR ---
PT ASSESSMENT COMPLETED. TEMP 102.7. ENC PT TO USE IS. RECHECKED PT AFTER TAKING DEEP BREATHS. TEMP NOW DOWN TO 102. CONTACTED CAMPUS SECURITY DIRECTOR ADDIE AND UPDATED HER ON PT TEMP AND ALSO REVIEWED ABD SCAN RESULTS. PER ORDERS GAVE PT TYLENOL. WILL CONTINUE TO ENC IS USE. TEMP NOW DOWN TO 99.4. SLEEPING WELL. DRESSING TO NECK DRY AND INTACT. ASST WITH REPOSITION FOR COMFORT. WILL CONTINUE TO MONITOR FREQUENTLY.
[2020-07-24 08:20] VITALS: BP 158/72
--- NOTE | 2020-07-24 11:44 | HC ---
[facility] [place] [address] CONSULTATION Name: DELORIS JEFFREY Room #: 516-1 ADM IN M.R.#: [id number] Admission: 07/18/20 Attend Phys: Yung Hoyt MD Discharge: Date of : 52 Report #: [id number] THIS REPORT FOR: cc: FAM - No family physician/PCP FAM - No family physician/PCP Matias Cabrera MD ~ DATE OF SERVICE: 07/23/2020 INFECTIOUS DISEASE CONSULTATION ATTENDING PHYSICIAN: Dr. Hoyt REASON FOR EVALUATION: Postoperative fevers. HISTORY OF SUBJECTIVE: Chart reviewed, the patient examined. This is a 69-year-old gentleman who presented to the Emergency Room on 07/08 with complaints of a syncopal episode. Evaluation confirmed a central cord syndrome, underwent operative laminectomy of the cervical spine on 07/15. He was transitioned to acute rehabilitation ____ floor on the since at times has had intermittent fevers primarily in the evening. Evaluation has been otherwise unremarkable including urinalysis, chest x-ray. On questioning, he states he has got right upper back pain and discomfort ____ to his lungs. He had received perioperative antibiotics with vancomycin, which was discontinued on the . On questioning, he notes he had a diagnosis of SARS-CoV-2 back in April around of last year. ____ states he has been having night sweats ____ 3-4 months. He is not aware of any fevers, although he has not taken his temperature ____ is not apparent to him. He notes no weight loss of significance. Denies any ____ exposure history. He has never travelled overseas, not aware of any direct exposure to ____ tuberculosis. ALLERGIES: HE DESCRIBES PENICILLIN CAUSES PRURITUS. CURRENT MEDICATIONS: Include gabapentin, docusate sodium, polyethylene, methocarbamol, lisinopril, aspirin, atorvastatin, pantoprazole, oxycodone as needed. PAST MEDICAL HISTORY: Atrial fibrillation, Perdomo's palsy, sleep apnea, hypertension, reflux, diabetes mellitus, arthritis, previous gastric sleeve for obesity, chronic renal insufficiency, coronary artery disease, previous appendectomy, cholecystectomy. SOCIAL HISTORY: Former smoker, occasional ethanol, occasional marijuana. FAMILY HISTORY: Noncontributory. [facility] [address] [place] [address] CONSULTATION Name: DELORIS JEFFREY Room #: [address] [place] [address] IN M.R.#: [id number] Admission: 07/18/20 Attend Phys: Yung Hoyt MD Discharge: Date of : 52 Report #: [id number] REVIEW OF SYSTEMS: Otherwise, unremarkable. PHYSICAL EXAMINATION: GENERAL: He is alert, cooperative, appropriate. He is lucid, mild distress, appears somewhat chronically ill. VITAL SIGNS: ____, pulse of 71, ____fever of 102.4, respirations 20, blood pressure 121/66. SKIN: Warm, dry, no rashes. HEENT: Normocephalic. Extraocular muscles are intact. Cervical posterior longitudinal incision appears to be well approximated. There is really minimal surface inflammation noted. No evident drainage. It is not overtly tender. There is no induration. LUNGS: Diminished breath sounds, otherwise clear. HEART: Regular. Borderline bradycardic. I do not appreciate any murmur. ABDOMEN: Soft, nontender. EXTREMITIES: No cyanosis. GENITOURINARY AND RECTAL: Deferred. LABORATORY DATA: CRP of 59.7. Blood cultures collected yesterday are sterile thus far. Urinalysis unremarkable. Coronavirus PCR was negative. CT of the spine possible hematoma involving the upper thoracic region within the canal. Chest x-ray showed mild atelectasis and scarring in the lung bases. Electrolytes: Sodium 137, potassium 3.9, chloride 101, bicarbonate is 28, anion gap of 8, BUN and creatinine 10 and 0.9. CBC: White count 6.9, H and H 10.9 and 34.0, platelets of 194. ASSESSMENT: Postoperative ____ nosocomial fevers, it is not entirely clear. There is no overt evidence of ongoing pyogenic infection of an acute nature. Discussion about night sweats suggests he may have had something ____ fever of unknown origin. We will check CT abdomen and pelvis ____ referred pain. Consider other things including noninfectious causes such as related to hematoma and perhaps medication related. We will check differential to exclude eosinophilia ____ temperature-pulse dissociation. We will check TB spot as well as histoplasma study given his lifelong residence in this area. I think I will hold off any particular empiric antibiotics if it worsen ____ evaluation would point to a specific issue, would empirically treat. <ELECTRONICALLY SIGNED> By: Matias Cabrera MD 07/24/20 1144 [id number] Matias Cabrera MD /nt
--- NOTE | 2020-07-24 15:33 | NUR ---
RN PATI NOTE: New to 5n acute rehab. cm called pt in room, she was working with OT on getting dressed. her daughter Lina # [phone] was in room as well and able to visit. cm intro to dcp, team meetings, and transition ofcare. Lina will be contact and visitor while she here at [facility]. Sapna, lives with her other daughter Romelia. Pt was independent prior to hospital. 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 Manage her own medication. drives vehicle. goes to [facility] location 3 x week. " they live in house only 2 steps up on porch inside. no medical equip. no hh or rehab in the past."/daughter Lina. Jt Cowan RN/PATI
--- NOTE | 2020-07-24 15:56 | NUR ---
PT ALERT AND ORIENTED TIMES FOUR. TEMP ELEVATED THIS MORNING. OTHER VSS. PT C/O PAIN PRN PAIN MEDICATIONS GIVEN WITH GOOD RELEIF. PT TOLERATES MEDS AND MEALS. PT WORKED WELL WITH PT/OT TODAY. PT PROGRESSING TOWRADS POC GOALS.
[2020-07-24 20:00] VITALS: BP 134/79
[2020-07-25 07:08] LABS: HAV IgM AB (ANTI-HAV IgM) Negative (Negative); HEPATITIS B SURFACE AG Negative (Negative); HEPATITIS C VIRUS AB <0.1 (0.0-0.9)
--- NOTE | 2020-07-25 08:04 | NUR ---
PROGRESS PT A/O X4 NOT OOB THIS SHIFT BUT WANTED ASSISTANCE REPOSITIONING THROUGHOUT THE NIGHT, PT C/O NECK PAIN AND ABDOMINAL PAIN AT A RATE OF 8, IN ROOM THIS AM AND DENIED PAIN, APPROXIMATELY 15 MINUTES AFTER THERAPY WENT IN TO WORK WITH PT AND HE C/O ARNDALL ON THE RIGHT PARIETAL AREA AT A LEVEL OF [address] AWAITING EFFECT DR. AHUMADA NOTIFIED AND WILL BE IN TO SEE HIM, SOME SLIGHT TWITCHING OF LEFT EYE NOTED PT NOT AWARE OF IT AND HAS HX OF BELLS PALSY. TEMP 100.4 LAST NIGHT AND 99.4 THIS AM NO OTHER S/S NOTED DRESSING TO NECK C/D/I.
[2020-07-25 08:37] VITALS: BP 112/67
--- NOTE | 2020-07-25 13:27 | NUR ---
PT CARE TAKEN OVER AT 0700, PT ALERT AND ORIENTED X4, DENIES CHEST PAIN, NAUSEA AND VOMITTING. PT STATED JHIS HEADACH IS BETTER NOW. NECK DRESSING INTACT AND IN PLACE. PT ON ROOM AIR, NO SIGNS OF DISTRESS NOTED. UP IN THE WITH CHAIR ALARM ON. USES THE URINAL AND CALLS OUT APPROPRAITELY. FALL PRECAUTIONS IN PLACE,WILL CONTINUE TO MONIITOR.
[2020-07-25 19:48] VITALS: BP 116/45
--- NOTE | 2020-07-26 01:05 | NUR ---
assumed care approx 1900 evening 07/25. pt lying in bed at change of shift sleeping off and on. pt with fever 102.8 at beginning of shift. pt stated this happens every night about this time and then it goes down per pt. pt encouraged to use IS, turn, cough, and deep breathe. pt stated he was very tired and pt not moving on his own much needing lots of encouragement. MARIZA Rodriguez notified of fever and Tylenol changed to 650mg and given to pt as ordered. fever went down to 99.6 approx 2345. pt sleeping well. bed alarm on and call light in reach. will continue to monitor.
[2020-07-26 07:15] VITALS: BP 126/81
--- NOTE | 2020-07-26 10:05 | NUR ---
PT A&OX4, VSS, DENIES PAIN. PATIENT REFUSED MIRALAX STATING HE WILL LET ME KNOW WHEN HE FEEL HE NEEDS IT. PATIENTS LBM 07/25. PATIENT PARTICIPATING IN THERAPIES. NO FEVER WITH A.M. VITAL SIGNS. DRESSING ON NECK IS BUNCHING, CALLED DOCTORS OFFICE AND MOLD HOLDER WILL BE UP SHORTLY TO SEE PATIENT. NO DRAINAGE FROM DRESSING NOTED. NO SIGNS OF DISTRESS OBSERVED. WILL CONTINUE TO MONITOR.
--- NOTE | 2020-07-26 12:44 | NUR ---
Nutrition followup: pt eating highly variable amounts of meals. Average intake 37% of meals, Snacks occasionally. With hx of gastic bypass, % intake not highly unusual. Likes the food. Obtained food preferences and assisted with meal ordering next several meals. Pt agreeable to trial of glucerna daily as unable to tolerate chocolate flavor ensure max. No recent weight. Did note standing scale weights running approx. 10# less than bedscale weights. Vitamin D level-23.1. Needs vitamin D supplementation and daily MVI. Already on calcium. REC obtain new weight. Keep as low nutrition risk for now
--- NOTE | 2020-07-26 12:59 | NUR ---
Nutrition: REC daily MVI and vitamin D supplement for deficiency. Hx gastric sleeve. No new weight since 07/18. REC obtain new weight.
[2020-07-26 19:46] VITALS: BP 138/81
--- NOTE | 2020-07-26 21:16 | NUR ---
PT WITH 100.3 TEMP, REFUSED TO TAKE PO TYLENOL. WILL CONTINUE TO MONITOR.
--- NOTE | 2020-07-27 01:43 | NUR ---
assumed care approx 1900 evening 07/26. pt lying in bed dozing off and on at change of shift. pt appropriate and cooperative this shift. pt voiding per urinal. pt refused Tylenol for temp 100.3 earlier in evening. pt temp did go down to 99.8. pt appears to be sleeping off and on in this night. bed alarm on and call light in reach. will continue to monitor.
[2020-07-27 07:30] VITALS: BP 141/73
--- NOTE | 2020-07-27 08:06 | NUR ---
ASSUMED CARE AT 0700. PATIENT IS ALERT AND ORIENTED X4. PATIENT ROCK'S, PEANUT PICKER ARE EQUAL. LUNGS ARE CLEAR AND DEMINISHED. ABD IS SOFT WITH BSX4. VOIDS PER URINAL PAT COLORED URINE. DRESSING TO NECK AREA INTACT. FALL AND SAFETY PROTOCOLS IN PLACE. CONTINUES ON ABT WITHOUT ADVERSE AFFECTS. C/O PAIN IN HIS NECK AREA AND OCCASIONAL SPASMS. MEDICATED WITH PRN PAIN MED. CONTINUES TO PROGRESS TOWARDS D/C GOALS. WILL CONTINUE TO MONITER.
[2020-07-27 19:23] VITALS: BP 135/77
--- NOTE | 2020-07-28 02:30 | NUR ---
PATIENT HAS NECK PAIN WITH SOME RADIATING AND SPASMING PAIN IN HIS ARMS, MAYBE A LITTLE MORE ON HIS RIGHT SIDE. REAR NECK DRESSING GAUZE IS DRY AND INTACT. ORAL TEMP = 99.5 IN THE EVENING, HE NOTES THAT IT HAS MYSTERIOUSLY BEEN ABOVE 100 IN THE EVENING A FEW DAYS THIS WEEK. PLEASANT, USING URINAL
[2020-07-28 08:00] VITALS: BP 125/65
--- NOTE | 2020-07-28 12:07 | NUR ---
PT ALERT AND ORIENTED TIMES FOUR. VSS. PT C/O OF SOME PAIN BUT STATES HE DIDNT WANT ANY MEDICATIONS AT THIS TIME. PT TOLERATES MEDS AND MEALS. DRESSING TO NECK CHANGED. PT PROGRESSING TOAWRDS POC GOALS.
[2020-07-28 19:20] VITALS: BP 126/83
--- NOTE | 2020-07-29 02:24 | NUR ---
AVOIDING PAIN MEDS FOR NECK PAIN, BUT TOOK TYLENOL LATE EVENING FOR HEADACHE. HAS BEEN SLEEPING MORE THAN LAST NIGHT, TURNING SELF IN BED, PULLING SELF UP IN BED WITH MIN ASSIST. NO FEVER TONIGHT, FEELS LIKE HE HAS MADE PROGRESS HERE, IS HOPING THAT HE CAN QUIT TAKING ANTIBIOTICS SOON, IS HOPING THAT HE CAN BE RELEASED TO GO HOME SOON HE IS MOVING AND WOULD LIKE TO BE AROUND TO HELP SUPERVISE, WHICH HE FEELS IS IMPOSSIBLE TO DO STRICTLY BY PHONE.
[2020-07-29] MEDS ORDERED: MELATONIN5 M1 PO (08:17)
[2020-07-29] MEDS ORDERED: COLACE100 MG PO (08:17)
[2020-07-29] MEDS ORDERED: ROBAXIN 750 MG750 MG PO (08:17)
[2020-07-29] MEDS ORDERED: CENTRUM SILVER1 EAC4 PO (08:17)
[2020-07-29] MEDS ORDERED: VITAMIN D325 MC1 PO (08:30)
[2020-07-29] MEDS ORDERED: CALTRATE-600 W1 EACH PO (08:30)
--- NOTE | 2020-07-29 09:20 | NUR ---
cm visited with pt at bedside, he up in recliner chair, cm cont wear face mask and shield during visit. re-education on choice for hh and who pcp is " any home health, i guess, its going to be hard for hh since moving in with daughter for bit then moving again. cant remember who pcp is. go to [facility]."/yvonne. will call and try to found out who his pcp is. will cont following as needed for dc needs.
[2020-07-29] MEDS ORDERED: FLAGYL500 M1 PO (09:55)
[2020-07-29] MEDS ORDERED: LEVOFLOXACIN500 MG PO (09:55)
[2020-07-29 11:26] VITALS: BP 139/78
--- NOTE | 2020-07-29 14:53 | NUR ---
DISCHARGE INSTRUCTIONS REVIEWED WITH PT AND INCLUDING F/U RECCOMENDATIONS-DISCHARGE MEDS,THERAPY ORDERS,WOUND CARE AND DRESSING CHANGES. THEY STATE UNDERSTANDING AND DENY QUESTIONS/CONCERNS. PT DENIES COMPLAINTS AT THIS TIME. DENIES PAIN/DISCOMFORT. DRESSING TO NECK FROM SURGEICAL PROCEDURE CLEAN/DRY AND INTACT.[facility] DELIVERS TO FLOOR AND SENT WITH PT. PERSONAL BELONGIONGS SENT.PT DC FROM FLOOR AT APPROX 1345 VIA WC-ACCOMPNIED BY AND NURSING STAFF TO PRIVATE VEHICLE.
[2020-07-29 15:06] VITALS: BP 139/80
--- NOTE | 2020-07-31 14:43 | H ---
[facility] [place] [address] HISTORY AND PHYSICAL Name: DELORIS JEFFREY Room #: 516-1 [facility] IN M.R.#: [id number] Admission: 07/18/20 Attend Phys: Yung Hoyt MD Discharge: 07/29/20 Date of : 52 Report #: [id number] THIS REPORT FOR: cc: FAM - No family physician/PCP FAM - No family physician/PCP Yung Hoyt MD ~ DATE OF SERVICE: 07/18/2020 HISTORY OF PRESENT ILLNESS: Please see the documentation as noted. The patient is a 69-year-old male who was originally admitted with a syncopal episode x 2, bradycardia, admitted to ICU for pressor support. MRI obtained of the cervical spine showed severe cervical spinal stenosis with central cord syndrome. Neurosurgery was consulted and he underwent a C4 through C7 laminectomy for spinal cord decompression and repair of the durotomy on 07/15/2020. He is allowed weightbearing as tolerated. He was placed in a cervical collar as needed for comfort. Monitor closely for headache with any associated photophobia and nausea. 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 He has now been admitted for acute in-hospital inpatient rehabilitation. PAST MEDICAL HISTORY, SOCIAL HISTORY, ALLERGIES, HABITS: Please see the full documentation. MEDICATIONS: Per the MAR. REVIEW OF SYSTEMS: A 14-point review of system was negative. He denied any headache, dizziness. No nausea, photophobia. No chest pain, shortness of breath, or abdominal discomfort. He has got some numbness of the right hand, especially the index and long. He did have some pain from the central line. PHYSICAL EXAMINATION: GENERAL: Pleasant, alert, oriented, no obvious distress. VITAL SIGNS: Temperature 37.9, pulse 63, respirations 14, blood pressure 130/73. HEENT: Facies are symmetric. CHEST: Sounded clear to auscultation. CARDIOVASCULAR: Regular rate and rhythm. ABDOMEN: Bowel sounds positive, nontender. GENITOURINARY AND RECTAL: Deferred. EXTREMITIES: He has functional range of motion of both upper extremities with cell tuber hand improved since surgery as noted. He does have some decreased sensation/neuropathy of his hands. Lower extremity strength is at least a grade 4- to 3+/5. He has been min assist with sit to stand. ASSESSMENT: [facility] [address] [place] [address] HISTORY AND PHYSICAL Name: DELORIS JEFFREY Room #: 516-1 [facility] IN .Romulo.#: [id number] Admission: 07/18/20 Attend Phys: Yung Hoyt MD Discharge: 07/29/20 Date of : 52 Report #: [id number] 1. Central cord syndrome, status post C4-C7 laminectomy for spinal cord decompression and repair of durotomy, 07/15/2020. 2. Cervical radiculopathy secondary to cervical stenosis with upper extremity weakness. 3. Syncopal episode with hypotension and bradycardia, resolved. 4. Type 2 diabetes mellitus, diet controlled. 5. Gastroesophageal reflux disease. 6. Obstructive sleep apnea. 7. History of Perdomo's palsy. 8. History of gastric sleeve. PLAN: The patient has been admitted for acute in-hospital inpatient rehabilitation. He will be involved in the interdisciplinary acute inpatient rehabilitation program with goal maximizing his functional independence, so he can hopefully return back to his prior living situation. I agree with the documentation as noted. The patient meets diagnostic criteria for an acute in-hospital inpatient rehabilitation stay. He meets the medical necessity criteria. He does have the tolerance for therapies and has appropriate discharge goals back to the home setting. Overall plan of care is based on the preadmission screen and information garnered from therapy assessments. 1. Estimated length of stay is probably at least 10-14 days. 2. Medical prognosis is reasonably good. 3. Anticipated interventions include the interdisciplinary acute inpatient rehabilitation program. 4. Anticipated functional outcomes would be for the patient to improve transfers, mobility, ADLs and overall independence, so he can hopefully return back to the home setting. 5. Discharge destination would be back to the home setting as is noted. He has been living with his in a multilevel house. 6. Expected therapy by discipline includes PT and OT 1 to 1-1/2 hours per day each five days a week throughout the duration of the acute inpatient rehabilitation stay. The patient's prognosis for significant practical improvement within a reasonable period of time appears good. Given the patient's complex medical condition and risk of further medical complication, rehabilitation services could not be safely provided at a lower level of care such as a [facility] facility. [address] [address] HISTORY AND PHYSICAL Name: MATILDE JEFFREYINOCENCIARico Gómez Room #: 516-1 DIS IN M.R.#: [id number] Admission: 07/18/20 Attend Phys: Yung Hoyt MD Discharge: 07/29/20 Date of : 52 Report #: [id number] Neurosurgery is consulted to continue following while on the rehab alcantara as well as the multiple other device sales consultant physicians. <ELECTRONICALLY SIGNED> By: Yung Hoyt MD 07/31/20 1443 [id number] Yung Hoyt MD /nt
== END 2020-07-29 14:00 | disposition home or self-care (01) | DRG 52 ==
PROVIDERS: Hospitalist; Nurse Practitioner; Nurse Practitioner Family; Specialist; ADMIT Physical Medicine & Rehabilitation; ATTEND Physical Medicine & Rehabilitation
DX: S14.127A Central cord syndrome at C7 level of cervical spinal cord, initial encounter (principal); E46 Unspecified protein-calorie malnutrition; M48.02 Spinal stenosis, cervical region; M54.12 Radiculopathy, cervical region; K21.9 Gastro-esophageal reflux disease without esophagitis; G47.33 Obstructive sleep apnea (adult) (pediatric); I12.9 Hypertensive chronic kidney disease with stage 1 through stage 4 chronic kidney disease, or unspecified chronic kidney disease; N18.9 Chronic kidney disease, unspecified; I25.10 Atherosclerotic heart disease of native coronary artery without angina pectoris; I48.91 Unspecified atrial fibrillation; E66.01 Morbid (severe) obesity due to excess calories; M19.90 Unspecified osteoarthritis, unspecified site; Z20.822 Contact with and (suspected) exposure to COVID-19; E11.22 Type 2 diabetes mellitus with diabetic chronic kidney disease; Y95 Nosocomial condition; Z96.652 Presence of left artificial knee joint; R29.6 Repeated falls; X58.XXXA Exposure to other specified factors, initial encounter; I95.9 Hypotension, unspecified; R53.81 Other malaise; E11.69 Type 2 diabetes mellitus with other specified complication; Z90.49 Acquired absence of other specified parts of digestive tract; Z88.0 Allergy status to penicillin; Z91.018 Allergy to other foods; Z79.899 Other long term (current) drug therapy; Z79.82 Long term (current) use of aspirin; Z68.36 Body mass index [BMI] 36.0-36.9, adult; Y93.89 Activity, other specified; Y92.89 Other specified places as the place of occurrence of the external cause; Y99.8 Other external cause status; Z87.891 Personal history of nicotine dependence; Z68.30 Body mass index [BMI] 30.0-30.9, adult; Z86.16 Personal history of COVID-19
CPT/HCPCS: 10112